=== PATIENT | male | born 2000 | race Caucasian/White ===

== ENCOUNTER 2022-04-26 20:55 | Emergency (ER) | payer OTHER ==
[~2022-04-26] VITALS: Ht 180.3 cm; Wt 71.7 kg
[2022-04-26 20:58] VITALS: BP 138/76
--- NOTE | 2022-04-26 20:58 | NUR ---
BRENDAN MEEKS. TAKEN TO CHAIR C
--- NOTE | 2022-04-26 22:00 | NUR ---
PT EVALUATED BY DR. LEWIS AT THIS TIME
[2022-04-26] MEDS ORDERED: BACITRACIN OINT 500 UNITS/GM PKT TP ONE (22:15)
--- NOTE | 2022-04-26 22:30 | NUR ---
PATIENT [facility] POLICE DEPT. PATIENT EXAMINED BY DR. LEWIS. PATIENT MEDICALLY CLEARED AND RELEASED IN CUSTODY IN STABLE CONDITION. ORIGINAL PRE-BOOK FORM GIVEN TO OFFICER EVANGELINA, #[id number].
--- NOTE | 2022-04-26 22:30 | NUR ---
PT DECLINED TDAP VACCINATION
== END 2022-04-26 22:30 ==
LOC: EDBD 20:55 → MED 20:55
DX: S40.812A Abrasion of left upper arm, initial encounter (principal); S40.811A Abrasion of right upper arm, initial encounter; W18.30XA Fall on same level, unspecified, initial encounter; Y93.89 Activity, other specified; Y92.89 Other specified places as the place of occurrence of the external cause; Y99.8 Other external cause status
CPT/HCPCS: 90715; 99283

== ENCOUNTER 2022-04-28 21:05 | Emergency (ER) | payer OTHER | END 2022-04-28 21:45 | disposition left against medical advice (07) | LOC: MED 21:05 | DX: R10.9 Unspecified abdominal pain (principal); Z53.21 Procedure and treatment not carried out due to patient leaving prior to being seen by health care provider ==

== ENCOUNTER 2022-06-05 19:45 | Emergency (ER) | payer OTHER ==
[~2022-06-05] VITALS: Ht 180.3 cm; Wt 70.8 kg
[2022-06-05 20:20] VITALS: BP 144/95
[2022-06-05 20:25] VITALS: BP 144/95
== END 2022-06-05 22:16 | disposition left against medical advice (07) ==
LOC: MED 19:45
DX: F41.9 Anxiety disorder, unspecified (principal); Z53.21 Procedure and treatment not carried out due to patient leaving prior to being seen by health care provider